=== PATIENT | male | born 1995 | race Hispanic/Latino ===

== ENCOUNTER 2023-04-07 06:55 | Day surgery (SDC) | payer BC ==
[2023-04-02 14:20] LABS: BASOPHILS # (AUTO) 0.04 K/uL (0.00-0.20); BASOPHILS % (AUTO) 0.5 % (0.0-5.0); EOSINOPHILS # (AUTO) 0.08 K/uL (0.00-0.70); HEMATOCRIT 41.3 % (42-54); IMMATURE GRANULOCYTE ABSOLUTE 0.01 K/uL (0-1); LYMPHOCYTES # (AUTO) 1.8 K/uL (1.0-4.8); LYMPHOCYTES % (AUTO) 24.1 % (21.0-51.0); MEAN CORPUSCULAR HEMOGLOBIN 30.3 pg (27.0-33.0); MEAN CORPUSCULAR HGB CONC 33.4 g/dL (32.0-36.0); MEAN CORPUSCULAR VOLUME 90.6 fL (79-99); MONOCYTES # (AUTO) 0.6 K/uL (0.1-1.0); MONOCYTES % (AUTO) 8.4 % (3.0-13.0); NEUTROPHILS % (AUTO) 65.9 % (40.0-77.0); PLATELET COUNT (AUTO) 201 K/uL (130-400); RED BLOOD CELL COUNT(AUTO) 4.56 MIL/uL (4.50-6.20); RED CELL DISTRIBUTION WIDTH 12.1 % (11.0-15.5); WHITE BLOOD COUNT (AUTO) 7.6 K/uL (4.8-10.8)
[2023-04-02 14:22] VITALS: BP 140/69; PULSE 63; RESP 18
[2023-04-02 14:32] LABS: INR 0.99 (0.85-1.15); PROTHROMBIN TIME 11.5 SEC (9.6-11.6)
[2023-04-02 14:33] LABS: PARTIAL THROMBOPLASTIN TIME 29.5 SEC (26.3-35.5)
[~2023-04-07] VITALS: Ht 182.9 cm; Wt 87.1 kg
[2023-04-07] VITALS (15 sets, daily range): BP systolic 97–131; BP diastolic 56–85; PULSE 56–74; RESP 11–18
[~2023-04-07 06:55] MED LIST: CEFAZOLIN SODIUM 2 GM VIAL ONE; LACTATED RINGERS 1000ML 1,000 ML IV ONE
[2023-04-07] MEDS ORDERED: BUPIVACAINE/PF 0.5% 30ML VIAL ONE (07:10)
[2023-04-07] MEDS ORDERED: LIDOCAINE 1%-EPI 1:100,000 20 ML VIAL IJ ONE (07:11)
[2023-04-07] MEDS ORDERED: SUCCINYLCHOLINE 200MG/10ML SYR ONE (07:13)
[2023-04-07] MEDS ORDERED: PROPOFOL 10 MG/ML 20ML VIAL IV ONE ×2 (07:13→09:05)
[2023-04-07] MEDS ORDERED: DEXAMETHASONE SOD PHOSPHATE 10MG/ML 1ML VIAL ONE (07:13)
[2023-04-07] MEDS ORDERED: NEOSTIGMINE 5MG/5ML SYR IV ONE (07:13)
[2023-04-07] MEDS ORDERED: MIDAZOLAM HCL 1 MG/ML 2ML VIAL ONE (07:13)
[2023-04-07] MEDS ORDERED: LIDOCAINE PF 100MG/5ML (2%) SYRINGE 5ML ONE (07:13)
[2023-04-07] MEDS ORDERED: GLYCOPYRROLATE 1 MG/5 ML SYRINGE ONE (07:13)
[2023-04-07] MEDS ORDERED: ROCURONIUM 10MG/1ML SYR 10 MG/ML ML ONE (07:14)
[2023-04-07] MEDS ORDERED: FENTANYL CITRATE PF 50 MCG/1 ML 2ML VIAL ONE ×2 (07:14→08:59)
[2023-04-07] MEDS ORDERED: ONDANSETRON 4MG INJ ONE (07:14)
[2023-04-07] MEDS ORDERED: BUPIVACAINE/PF 0.5% 30ML VIAL INJ ONE (08:42)
[2023-04-07] MEDS ORDERED: CEFAZOLIN SODIUM 2 GM VIAL IVPB ONE (08:49)
[2023-04-07] MEDS ORDERED: GABA-529 PO (09:59)
[2023-04-07] MEDS ORDERED: DOCU-116 PO (09:59)
[2023-04-07] MEDS ORDERED: TRAM50TA4 PO (09:59)
[2023-04-07] MEDS ORDERED: KETOROLAC 30MG VIAL (30MG/ML) ONE (10:18)
== END 2023-04-07 11:20 | disposition home or self-care (01) ==
LOC: DAH 06:55
PROVIDERS: ATTEND Surgery
DX: R22.1 Localized swelling, mass and lump, neck (principal); L72.8 Other follicular cysts of the skin and subcutaneous tissue; Z79.01 Long term (current) use of anticoagulants; Z90.49 Acquired absence of other specified parts of digestive tract
CPT/HCPCS: 85025; 85610; 85730; 11423; 36415; 88305; A6260; A4663; J7030; A4452; J7120; J3010 ×2; J3490 ×4; J0330; J1100; J2710; J2001; J2250; J2704 ×2; J2405; J1885; J0690 ×2; C1713; A4215; A4223; A4222; A4221; A4600